=== PATIENT | female | born 1985 | race Caucasian/White ===

== ENCOUNTER → 2016-09-07 | Outpatient (CLI) | payer OTHER ==
[~2016-09-07] MED LIST: ALBUTEROL17 GM; ANTIDEPRESSANT; AZITHROMYCIN250 MG; BACTRIM DS TABL1 TA1 PO; CORTISPORIN-TC10 ML OT; ESOMEPRAZOLE MA40 MG; LORCET PLUS 7.1 EACH PO; NO MEDICATIONS; OMNICEF300 M1 PO; PREVACID; PRILOSEC PO; TRAZODONE HCL100 MG; ZITHROMAX PO
--- NOTE | ~2016-09-07 | US98 ---
[facility] A Service of [facility] RADIOLOGY TEXT RESULTS PATIENT: CLAIRE COLON LOCATION: SGUS : 89 UNIT #: [id number] AGE: [address]: Narendra Hong MD SEX: F ORDER DR: [id number] [address] [address] [id number] O MR#: [id number] Acc #: [id number] NAME: CLAIRE COLON : 1985 SEX: F STUDY DATE/TIME: 09/07/2016 12:58 UNIT: SG ROOM: STUDY DESCRIPTION: US Pelvic Non-OB Complete Attending Physician: Narendra Hong M.D. Referring Physician: Narendra Hong M.D. Ordering Physician: Narendra Hong M.D. Primary Care Physician: No Primary Care Physician MEDICAL IMAGING REPORT This report is preliminary unless electronic signature is present. EXAM Transabdominal and transvaginal pelvic ultrasound, 09/07/16 HISTORY Pelvic pain for 1 year FINDINGS Transabdominal and transvaginal pelvic ultrasound was performed. Endovaginal ultrasound was performed for attempted better visualization of the adnexal structures. The bladder is normal in appearance. The uterus measures 7.5 cm craniocaudal by 2.4 cm AP x 4.1 cm transverse. The endometrial stripe measures 4 mm. Intrauterine contraceptive device is seen within the upper portion of the endometrial canal. The right ovary measures 2.8 cm x 2.5 cm x 2.3 cm, while the left ovary measures 2.9 cm x 2.1 cm x 3.3 cm. Small follicles are seen on both ovaries. There is no adnexal mass, and there is no free fluid in the pelvis. IMPRESSION Intrauterine contraceptive device seen along the upper aspect of the endometrial canal. Otherwise, negative transabdominal and transvaginal pelvic ultrasound. Dictated by... Lazaro Marie M.D. THIS IS AN ELECTRONICALLY VERIFIED REPORT Lazaro Marie M.D. at 09/10/2016 2:17 PM KRT/ea [facility] A Service of [facility] & [facility] RADIOLOGY TEXT RESULTS PATIENT: CLAIRE COLON LOCATION: [facility] #: [id number] : [birth year] UNIT #: [id number] AGE: [address]: Narendra Hong MD SEX: F ORDER DR: TD: 09/07/2016 19:38 JOB #: [id number] MEDICAL IMAGING REPORT Page 1 of 1
== END | disposition home or self-care (01) ==
LOC: SGUS 12:48
DX: Z30.431 Encounter for routine checking of intrauterine contraceptive device (principal); R10.2 Pelvic and perineal pain
CPT/HCPCS: 76830; 76856

== ENCOUNTER 2016-09-23 09:55 | Emergency (ER) | payer SELFPAY ==
--- NOTE | ~2016-09-23 | CR2 ---
[facility] A Service of [facility] RADIOLOGY TEXT RESULTS PATIENT: CLAIRE COLON LOCATION: SED : 87 UNIT #: [id number] AGE: [address]: LILO ELLINGTON PA-C SEX: F ORDER DR: [id number] [address] [address] [id number] E MR#: [id number] Acc #: [id number] NAME: CLAIRE COLON : 1985 SEX: F STUDY DATE/TIME: 09/23/2016 11:05 UNIT: SED ROOM: STUDY DESCRIPTION: CR Abdomen Acute Series Attending Physician: Lilo Ellington Pa-C Ordering Physician: Lilo Ellington Pa-C Primary Care Physician: Primary Care Physician No MEDICAL IMAGING REPORT This report is preliminary unless electronic signature is present. EXAM Acute abdominal series INDICATIONS Lower abdominal pain for 1 month. There are no comparisons available. FINDINGS PA view of the chest is within normal limits. AP upright and flat views of the abdomen demonstrate a nonobstructed bowel gas pattern. There is gas and stool within the colon. There is no free air under the diaphragm. An IUD is in place. There are no radiopaque calculi. IMPRESSION Nonobstructed bowel gas pattern. Dictated by... John Ortega M.D. THIS IS AN ELECTRONICALLY VERIFIED REPORT John Ortega M.D. at 09/24/2016 2:21 PM ARS/psc TD: 09/24/2016 00:28 JOB #: [id number] MEDICAL IMAGING REPORT Page 1 of 1
[~2016-09-23 09:55] MED LIST changes: -ALBUTEROL17 GM; -ANTIDEPRESSANT; -AZITHROMYCIN250 MG; -ESOMEPRAZOLE MA40 MG; -LORCET PLUS 7.1 EACH PO; -OMNICEF300 M1 PO; -PREVACID; -PRILOSEC PO; -TRAZODONE HCL100 MG
[2016-09-23] MEDS ORDERED: PREVACID (10:03)
[2016-09-23] MEDS ORDERED: ANTIDEPRESSANT (10:03)
[2016-09-23 10:25] LABS: URINE APPEARANCE CLOUDY; URINE BLOOD TRACE-INTACT (NEG); URINE COLOR YELLOW; URINE GLUCOSE NEG (NORM); URINE KETONE NEG (NEG); URINE LEUKOCYTE ESTERASE 1+ (NEG); URINE NITRATE NEG (NEG); URINE PH 5.5 (5-8); URINE PROTEIN TRACE (NEG); URINE SPECIFIC GRAVITY >=1.030 (1.003-1.035)
[2016-09-23 10:28] LABS: URINE SOURCE CLEAN CATCH
[2016-09-23 10:29] LABS: MICRO INDICATED? YES; URINE BILIRUBIN NEG (NEG)
[2016-09-23 10:32] LABS: CULTURE INDICATED? YES; URINE BACTERIA 2+ (NEG); URINE MUCUS PRESENT; URINE SQUAMOUS EPITHELIAL CELL MANY /[HPF]; URINE WBC 25-50 /[HPF] (0-5)
[2016-09-23 10:53] LABS: BASOPHIL# 0.1 X10e3 (0-0.3); BASOPHIL% 1.4 % (0-2.5); EOSINOPHIL# 0.1 X10e3 (0-0.7); EOSINOPHIL% 0.9 % (0.0-7.0); HEMATOCRIT 44.6 % (35.0-45.0); HEMOGLOBIN 14.5 gm/dL (12.0-16.0); LYMPHOCYTE# 1.3 X10e3 (1.0-3.5); LYMPHOCYTE% 15.8 % (17.0-45.0); MEAN CELL VOLUME 88.5 FL (83-96); MEAN CORPUSCULAR HEMOGLOBIN 28.8 PG (28-34); MEAN CORPUSCULAR HGB CONC 32.6 g/dL (30-36); MEAN PLATELET VOLUME 9.5 FL (6.5-11.5); MONOCYTE# 0.5 X10e3 (0-1.0); MONOCYTE% 6.1 % (3.0-12.0); NEUTROPHIL# 6.2 X10e3 (1.5-7.1); NEUTROPHIL% 75.8 % (40-75); PLATELET COUNT 213 X10e3 (140-420); RED BLOOD COUNT 5.04 X10e (3.90-5.30); RED CELL DISTRIBUTION WIDTH 13.5 % (11.0-15.5); WHITE BLOOD COUNT 8.1 X10e3 (4.0-10.5)
[2016-09-23 10:56] LABS: DIFF IND NO
[2016-09-23 11:11] LABS: ALBUMIN SERUM 4.2 g/dL (3.5-5.0); BILIRUBIN,TOTAL 0.7 mg/dL (0.2-2.0); CREATININE SERUM 0.7 mg/dL (0.6-1.4); GLOM FILT RATE Estimated 117.1 mL/min (>60); POTASSIUM 4.1 mmol/L (3.5-5.1)
== END 2016-09-23 11:36 | disposition home or self-care (01) ==
LOC: SED 09:55
PROVIDERS: Physician Assistant
DX: N39.0 Urinary tract infection, site not specified (principal); B96.81 Helicobacter pylori [H. pylori] as the cause of diseases classified elsewhere; J45.909 Unspecified asthma, uncomplicated; F17.210 Nicotine dependence, cigarettes, uncomplicated; Z88.0 Allergy status to penicillin; Z91.040 Latex allergy status
CPT/HCPCS: 36415; 74022; 80053; 81003; 83690; 84703; 85025; 86677; 87086; 96374; 99284; J1885

== ENCOUNTER 2016-12-02 18:08 | Emergency (ER) | payer OTHER ==
[~2016-12-02] VITALS: Ht 160 cm; Wt 51.2 kg
--- NOTE | ~2016-12-02 | CR72 ---
[facility] A Service of [facility] RADIOLOGY TEXT RESULTS PATIENT: CLAIRE COLON LOCATION: SED : 89 UNIT #: [id number] AGE: [address]: Yang Lanza MD SEX: F ORDER DR: [id number] [place] [id number] E MR#: [id number] Acc #: [id number] NAME: CLAIRE COLON : 1985 SEX: F STUDY DATE/TIME: 12/02/2016 21:43 UNIT: SED ROOM: STUDY DESCRIPTION: CR Chest Single View Portable Attending Physician: Yang Lanza M.D. Ordering Physician: Yang Lanza M.D. Primary Care Physician: Primary Care Physician No MEDICAL IMAGING REPORT This report is preliminary unless electronic signature is present. EXAM Single view of the chest dated 12/02/16 COMPARISON: Frontal view of the chest with rib series dated 12/02/16 HISTORY Shortness of air and chest pain today. FINDINGS Frontal view of the chest was obtained. A single AP portable view of the chest shows both lungs to be clear. The heart is normal in size. The mediastinal contour is normal. No significant bone abnormalities are seen. IMPRESSION Normal portable chest. Dictated by... Albin Cope M.D. THIS IS AN ELECTRONICALLY VERIFIED REPORT Albin Cope M.D. at 12/03/2016 7:34 PM CPR/cmm TD: 12/03/2016 09:26 JOB #: [id number] [facility] A Service of [facility] RADIOLOGY TEXT RESULTS PATIENT: CLAIRE COLON LOCATION: SED : 87 UNIT #: [id number] AGE: [address]: Yang Lanza MD SEX: F ORDER DR: MEDICAL IMAGING REPORT Page 1 of 1
--- NOTE | ~2016-12-02 | CR210 ---
[facility] A Service of [facility] RADIOLOGY TEXT RESULTS PATIENT: CLAIRE COLON LOCATION: SED : 89 UNIT #: [id number] AGE: [address]: Yang Lanza MD SEX: F ORDER DR: [id number] [place] [id number] E MR#: [id number] Acc #: [id number] NAME: CLAIRE COLON : 1985 SEX: F STUDY DATE/TIME: 12/02/2016 19:59 UNIT: SED ROOM: STUDY DESCRIPTION: CR Ribs Uni 2 View W PA Ch Lt Attending Physician: Yang Lanza M.D. Ordering Physician: Yang Lanza M.D. Primary Care Physician: No Primary Care Physician MEDICAL IMAGING REPORT This report is preliminary unless electronic signature is present. EXAM Left ribs with PA chest. HISTORY Fell while helping someone moved furniture today, complains of left lower rib pain and shortness of air, chest pain. FINDINGS PA view of the chest demonstrates approximately 50% left-sided pneumothorax. No evidence of tension pneumothorax. There is a minimally-displaced left eleventh posterior lateral rib fracture. No other definite fractures are seen. Heart, mediastinum unremarkable. The right lung remains clear. Soft tissues unremarkable. Results called to the emergency room prior to this report. Dictated by... Ralph Ortega M.D. THIS IS AN ELECTRONICALLY VERIFIED REPORT Ralph Ortega M.D. at 12/03/2016 5:38 PM TAURUS/carrol TD: 12/03/2016 08:43 JOB #: [id number] MEDICAL IMAGING REPORT Page 1 of 1
[~2016-12-02 18:08] MED LIST changes: +ANTIDEPRESSANT; +PREVACID
[2016-12-02] MEDS ORDERED: AZITHROMYCIN250 MG (18:21)
[2016-12-02] MEDS ORDERED: ESOMEPRAZOLE MA40 MG (18:21)
[2016-12-02] MEDS ORDERED: ALBUTEROL17 GM (18:21)
[2016-12-02] MEDS ORDERED: TRAZODONE HCL100 MG (18:21)
== END 2016-12-03 00:01 ==
LOC: SED 18:08
DX: S22.32XA Fracture of one rib, left side, initial encounter for closed fracture (principal); J93.9 Pneumothorax, unspecified; F17.210 Nicotine dependence, cigarettes, uncomplicated; W19.XXXA Unspecified fall, initial encounter; Y92.009 Unspecified place in unspecified non-institutional (private) residence as the place of occurrence of the external cause; Z88.0 Allergy status to penicillin; Z91.040 Latex allergy status
CPT/HCPCS: 32551; 36415; 71010; 71100; 84703; 96361; 96374; 99284; J1170; J2270; J2405; J3010

== ENCOUNTER 2016-12-08 13:02 | Emergency (ER) | payer OTHER ==
--- NOTE | ~2016-12-08 | CT57 ---
[facility] A Service of [facility] RADIOLOGY TEXT RESULTS PATIENT: CLAIRE COLON LOCATION: SED : [birth year] UNIT #: [id number] AGE: [address]: LEE RINALDI SEX: F ORDER DR: [id number] [address] [address] [id number] E MR#: [id number] Acc #: [id number] NAME: CLAIRE COLON : 1985 SEX: F STUDY DATE/TIME: 12/08/2016 13:42 UNIT: SED ROOM: STUDY DESCRIPTION: CT Chest Wo Cont Attending Physician: Lee Rinaldi A.P.R.N. Ordering Physician: Lee Rinaldi A.P.R.N. Primary Care Physician: No Primary Care Physician MEDICAL IMAGING REPORT This report is preliminary unless electronic signature is present. EXAM CT scan of the chest without contrast HISTORY Follow-up pneumothorax from 12/02/2016. Patient was coughing today and felt pop and sharp pain in left side of ribs. TECHNIQUE This CT exam was performed with one or more of the following radiation dose reduction techniques: automatic control, adjustment of mA and/or kV according to patient size, and iterative reconstruction. FINDINGS Axial 5 mm images were obtained through the chest without IV contrast. Visualized portions of upper abdomen are normal. Sagittal and coronal reconstructions are generated. Thyroid gland is normal. There is no pneumothorax. The lungs are clear. There is a recent appearing fracture involving the left eleventh rib posteriorly and laterally. The other ribs are normal. IMPRESSION There is a recent posterior lateral left eleventh rib fracture. Otherwise study is normal. Dictated by... Krish Vigil M.D. THIS IS AN ELECTRONICALLY VERIFIED REPORT Krish Vigil M.D. at 12/09/2016 9:36 PM [facility] A Service of [facility] RADIOLOGY TEXT RESULTS PATIENT: CLAIRE COLON LOCATION: SED : 89 UNIT #: [id number] AGE: [address]: LEE RINALDI SEX: F ORDER DR: SEVERO/eda TD: 12/09/2016 05:45 JOB #: [id number] MEDICAL IMAGING REPORT Page 1 of 1
[~2016-12-08 13:02] MED LIST changes: +ALBUTEROL17 GM; +AZITHROMYCIN250 MG; +ESOMEPRAZOLE MA40 MG; +TRAZODONE HCL100 MG
[2016-12-08] MEDS ORDERED: PRILOSEC PO (13:10)
[2016-12-08] MEDS ORDERED: OMNICEF300 M1 PO (13:10)
[2016-12-08] MEDS ORDERED: LORCET PLUS 7.1 EACH PO (13:10)
== END 2016-12-08 14:15 | disposition home or self-care (01) ==
LOC: SED 13:02
DX: S22.32XA Fracture of one rib, left side, initial encounter for closed fracture (principal); Z88.0 Allergy status to penicillin; Z91.040 Latex allergy status; F17.200 Nicotine dependence, unspecified, uncomplicated; X58.XXXA Exposure to other specified factors, initial encounter; Y92.9 Unspecified place or not applicable
CPT/HCPCS: 71250; 96372; 99283; J1885